=== PATIENT | male | born 2000 | race Caucasian/White ===

== ENCOUNTER 2021-03-04 14:26 | Emergency (ER) | payer OTHER ==
[2021-03-04 14:38] VITALS: BP 160/61
--- NOTE | 2021-03-04 15:24 | XRAY Report ---
PROCEDURE: Ankle 3 View LT INDICATIONS: Trauma TECHNIQUE: 3 views of the ankle were acquired. COMPARISON: None FINDINGS: Bones: No fractures or dislocations. Ankle mortise is normally aligned. No suspicious bony lesions . Soft tissues: No tibiotalar joint effusion. Achilles tendon appears normal. IMPRESSION: No visualized acute fracture or dislocation. However, occult injury cannot be excluded. Recommend short interval imaging follow-up in 7-10 days as clinically indicated for additional evalua tion. Reviewed by: Yessica Lozoya MD on 03/04/2021 3:23 PM PDT Approved by: Yessica Lozoya MD on 03/04/2021 3:23 PM PDT Station ID: [id number]
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
== END 2021-03-04 16:18 | disposition home or self-care (01) ==
LOC: ED 14:26
DX: S93.492A Sprain of other ligament of left ankle, initial encounter (principal); V28.4XXA Motorcycle driver injured in noncollision transport accident in traffic accident, initial encounter; Y93.55 Activity, bike riding
CPT/HCPCS: 99282; 99283

== ENCOUNTER 2023-06-18 13:36 | Outpatient (CLI) | payer OTHER ==
--- NOTE | 2023-06-18 17:53 | XRAY Report ---
PROCEDURE: Lumbar Spine 2 View INDICATIONS: SCIATICA,RIGHT SIDE TECHNIQUE: 3 views of the lumbar spine were acquired. COMPARISON: None. FINDINGS: Bones: 5 [id number] vertebrae are present. Slight dextroconvex curvature of the lumbar spine wi th apex at L3. No vertebral body compression fractures. Vertebral body and disc height is maintained. Mild L5-S1 facet arthropathy and osseous neural foraminal narrowing. No suspicious bony lesions. Soft tissues: Overlying bowel gas pattern is normal. No suspicious soft tissue calcifications. IMPRESSION: 1. No acute fracture or traumatic subluxation of the lumbar spine. 2. Mild L5-S1 facet arthropathy and osseous neural foraminal narrowing. Reviewed by: Maura Nascimento MD on 06/18/2023 5:52 PM PDT Approved by: Maura Nascimento MD on 06/18/2023 5:52 PM PDT Station ID: [id number]
== END 2023-06-18 13:37 | disposition home or self-care (01) ==
LOC: DI 13:36
PROVIDERS: ATTEND Physician Assistant Medical
DX: M54.31 Sciatica, right side (principal); M47.816 Spondylosis without myelopathy or radiculopathy, lumbar region; M48.061 Spinal stenosis, lumbar region without neurogenic claudication